=== PATIENT | male | born 1980 | race Native Hawaiian/Other Pacific Islander ===

== ENCOUNTER 2016-04-20 21:04 | Emergency (ER) | payer OTHER ==
[2016-04-20] MEDS ORDERED: IPRATROPIUM/ALBUTEROL 0.5-2.5 MG/3 ML AMPUL NEB ONE (21:52)
[2016-04-20] MEDS ORDERED: PREDNISONE 20 MG TABLET PO ONE (21:52)
--- NOTE | 2016-04-20 21:56 | ER Document Report ---
ED Medical Screen (RME) - General Chief Complaint: Breathing Difficulty Stated Complaint: DIFFICULTY BREATHING/DIZZINESS Mode of Arrival: Ambulatory Information source: Patient Notes: 35 y/o M presents to ED c/o worsening cough over the last 2 days. Reports associated sob and dizziness with coughing bouts. States cough is productive. Denies chest pain without cough or hemoptysis. I have greeted and performed a rapid initial assessment of this patient. A comprehensive ED assessment and evaluation of the patient, analysis of test results and completion of the medical decision making process will be conducted by additional ED providers. TRAVEL OUTSIDE OF THE [place] IN LAST 30 DAYS: No - Related Data Allergies/Adverse Reactions: No Known Allergies Allergy (Unverified 04/20/16 21:49) Past Medical History - Social History Chew tobacco use (# tins/day): No Frequency of alcohol use: None Drug Abuse: None Renal/ Medical History: Denies: Hx Peritoneal Dialysis Physical Exam - Vital signs Vitals: Temp Pulse Resp BP Pulse Ox 99.7 F 134 H 20 103/81 94 04/20/16 21:46 04/20/16 21:46 04/20/16 21:46 04/20/16 21:46 04/20/16 21:46 - General General appearance: Alert In distress: None - Respiratory Respiratory status: No respiratory distress Breath sounds: Wheezing - Expiratory - Cardiovascular Rhythm: Tachycardia Pulses: Normal: Radial Normal capillary refill: Yes Course - Vital Signs Vital signs: Temp Pulse Resp BP Pulse Ox 99.7 F 134 H 20 103/81 94 04/20/16 21:46 04/20/16 21:46 04/20/16 21:46 04/20/16 21:46 04/20/16 21:46
[2016-04-20] MEDS ORDERED: NORMAL SALINE 1000 ML 1,000 ML IV ONE (21:58)
--- NOTE | 2016-04-21 00:12 | EKG REPORT ---
SEVERITY:- BORDERLINE ECG - SINUS TACHYCARDIA PROBABLE LEFT ATRIAL ABNORMALITY : Confirmed by: Jose Marin 21-Apr-2016 00:11:07
[2016-04-21] MEDS ORDERED: ONDANSETRON ODT 4 MG TAB (6 TAB/DSPK) PO PRN (02:38)
--- NOTE | 2016-04-21 02:38 | ER Document Report ---
ED General - General Chief Complaint: Breathing Difficulty Stated Complaint: DIFFICULTY BREATHING/DIZZINESS Mode of Arrival: Ambulatory Notes: Patient is a 35-year-old male without past medical history, he did receive a flu immunization this year presents with 3 days of cough, increased sputum production, myalgias, generalized fatigue. He has also had a fever at home. Multiple sick contacts with same symptoms. No vomiting, diarrhea, or altered mental status. No headache or neck pain. Denies a history of similar symptoms in the past. He has not seen his primary care physician regarding today's concerns. TRAVEL OUTSIDE OF THE [place] IN LAST 30 DAYS: No - Related Data Allergies/Adverse Reactions: No Known Allergies Allergy (Unverified 04/20/16 21:49) Past Medical History - General Information source: Patient - Social History Smoking Status: Never Smoker Chew tobacco use (# tins/day): No Frequency of alcohol use: None Drug Abuse: None Lives with: Family Family History: Reviewed & Not Pertinent Patient has suicidal ideation: No Patient has homicidal ideation: No Renal/ Medical History: Denies: Hx Peritoneal Dialysis Review of Systems - Review of Systems Notes: Constitutional: Positive for fever. HENT: Negative for sore throat. Eyes: Negative for visual changes. Cardiovascular: Negative for chest pain. Respiratory: Negative for shortness of breath. Positive cough Gastrointestinal: Negative for abdominal pain, vomiting or diarrhea. Genitourinary: Negative for dysuria. Musculoskeletal: Negative for back pain. Skin: Negative for rash. Neurological: Negative for headaches, weakness or numbness. 10 point ROS negative except as marked above and in HPI. Physical Exam - Vital signs Vitals: Temp Pulse Resp BP Pulse Ox 99.7 F 134 H 20 103/81 94 04/20/16 21:46 04/20/16 21:46 04/20/16 21:46 04/20/16 21:46 04/20/16 21:46 Interpretation: Tachycardic Notes: PHYSICAL EXAMINATION: GENERAL: Well-appearing, well-nourished and in no acute distress. HEAD: Atraumatic, normocephalic. EYES: Pupils equal round and reactive to light, extraocular movements intact, sclera anicteric, conjunctiva are normal. ENT: nares patent, oropharynx clear without exudates. Moist mucous membranes. NECK: Normal range of motion, supple without lymphadenopathy LUNGS: Breath sounds clear to auscultation bilaterally and equal. No wheezes rales or rhonchi. HEART: Regular tachycardia without murmurs ABDOMEN: Soft, nontender, normoactive bowel sounds. No guarding, no rebound. No masses appreciated. EXTREMITIES: Normal range of motion, no pitting or edema. No cyanosis. NEUROLOGICAL: No focal neurological deficits. Moves all extremities spontaneously and on command. PSYCH: Normal mood, normal affect. SKIN: Warm, Dry, normal turgor, no rashes or lesions noted. Course - Re-evaluation Re-evalutation: 04/21/16 02:37 Patient presents with cough, nausea and fever at home consistent with a diagnosis of influenza. Influenza testing is positive. Patient is overall well in appearance, in no acute distress. Lung sounds clear. Able to tolerate oral intake without difficulty here in the emergency department. After risks and benefits conversation with the patient regarding the use of Tamiflu, they have elected to use supportive care without Tamiflu based on concerns about lack of efficacy as well as the side effect profile. At this time will discharge with return precautions and follow-up recommendations. Verbal discharge instructions given a the bedside and opportunity for questions given. Medication warnings reviewed. Patient is in agreement with this plan and has verbalized understanding of return precautions and the need for primary care follow-up in the next 24-72 hours. - Vital Signs Vital signs: Temp Pulse Resp BP Pulse Ox 99.7 F 123 H 20 103/81 94 04/20/16 21:46 04/20/16 23:40 04/21/16 02:42 04/20/16 21:46 04/21/16 02:42 - Diagnostic Test Radiology reviewed: Image reviewed, Reports reviewed Radiology results interpreted by me: 04/21/16 02:37 Chest x-ray: No acute infiltrate Discharge - Discharge Clinical Impression: Influenza Condition: Good Disposition: HOME, SELF-CARE Additional Instructions: You have influenza. There is no treatment that is effective for this diagnosis other than supportive care at home. This includes drinking plenty of fluids, using Tylenol or ibuprofen as needed for fever and discomfort, and Zofran as needed for nausea and vomiting. Please follow closely with you primary care physician the next 1-2 days regarding this diagnosis. Return to the emergency department immediately if you began to have persistent vomiting prevents you from being able to keep fluids down for more than 12 hours, you pass out, you began having difficulty breathing, you become confused, or you have any other symptoms that are worrisome to you.
[2016-04-21 03:09] VITALS: BP 120/80
== END 2016-04-21 03:16 | disposition home or self-care (01) ==
LOC: ER 21:04
DX: J11.1 Influenza due to unidentified influenza virus with other respiratory manifestations (principal); R06.02 Shortness of breath; R42 Dizziness and giddiness
CPT/HCPCS: 93005; 99285; 87804; 71020; 93010; J7512; J7620